=== PATIENT | female | born 1965 | race Asian ===

== ENCOUNTER 2019-10-31 23:40 | Inpatient (IN) | payer BC ==
[~2019-10-31] VITALS: Ht 157.5 cm; Wt 58.7 kg
[2019-11-01 00:10] VITALS: Ht 157.5 cm; Wt 58.7 kg
--- NOTE | 2019-11-01 00:15 | NUR ---
PT BIB AMBULANCE TODAY WITH C/C DIZZINESS BEGINNING AROUND 1999 LAST PM. PT REPORTS DIZZINESS, "LIKE THE ROOM IS SPINNING". PT ALSO C/O GENERALIZED WEAKNESS AND HEAVINESS IN HER CHEST. PT ALSO REPORTS THAT SHE HAS BEEN CONSTIPATED OVER THE LAST SEVERAL DAYS. LAST BM WAS YESTERDAY DURING LUNCH TIME WHEN SHE NOTICED BRIGHT RED BLOOD FROM RECTUM S/P BM. PT IS AWAKE AND ALERT, RESP E/U, DENIES PAIN.
[2019-11-01 00:53] LABS: BASOPHIL % 0.5 % (0-2); PLATELET COUNT 276 x10^3mcL (130-400); RED CELL DISTRIBUTION WIDTH 13.8 % (11.5-14.5)
[2019-11-01 01:18] LABS: CALCIUM 8.6 mg/dL (8.5-10.1); CARBON DIOXIDE 24.9 mmol/L (21-32); CHLORIDE SERUM 102 mmol/L (98-107); CREATININE SERUM 0.6 mg/dL (0.6-1.0); GFR1 > 60 mL/min; GLUCOSE SERUM 129 mg/dL (74-106); POTASSIUM SERUM 3.1 mmol/L (3.5-5.1); SODIUM SERUM 137 mmol/L (136-145)
[2019-11-01 01:19] LABS: ALBUMIN 3.8 g/dL (3.4-5.0); ALKALINE PHOSPHATASE 85 U/L (46-116); ALT/SGPT 31 U/L (14-59); AST/SGOT 22 U/L (15-37); BILIRUBIN TOTAL 0.8 mg/dL (0.20-1.00); TOTAL PROTEIN, SERUM 7.4 g/dL (6.4-8.2)
--- NOTE | 2019-11-01 02:00 | NUR ---
PATIENT TRIED TO WAK TO THE BATHROOM BUT FEEL TOO DIZZY WHEN SHE SIT UP N BED, THE BEDPAN WAS GIVEN
--- NOTE | 2019-11-01 04:02 | NUR ---
PATIENT AMBULATED TO THE BATHROOM.
--- NOTE | 2019-11-01 04:04 | NUR ---
PATIENT MOVED TO ROOM 12. ANTEVERT WAS GIVEN, A SECOND BAG OF SALINE IS INFUSING. PATIENT IS WAIITNG FOR ADMISSION BED.
[2019-11-01 04:15] LABS: T3 TOTAL 0.82 ng/mL
--- NOTE | 2019-11-01 04:39 | NUR ---
RESIDENT AT THE BEDSIDE TALKING TO THE PATIENT.
[2019-11-01 05:19] LABS: UA SPECIFIC GRAVITY <=1.005 (1.005-1.035); microscopic required? YES; urine erythrocyte NEGATIVE (NEGATIVE)
--- NOTE | 2019-11-01 05:19 | NUR ---
PATIENT IS SLEEPING, NO DISTRESS.
[2019-11-01 06:13] LABS: AMPHETAMINE QUAL UR NONE DETECTED (See below)
--- NOTE | 2019-11-01 06:19 | NUR ---
PATIENT WENT FOR CT SCAN OF THE HEAD. AMBULATED TO THE BATHROOM ON RETURN TO THE ROOM.
[2019-11-01] MEDS ORDERED: AMLODIPINE BESYL5 M2 PO (06:23)
--- NOTE | 2019-11-01 07:02 | NUR ---
PATIENT RESTING, NO COMPLAINT.
--- NOTE | 2019-11-01 08:05 | NUR ---
RECEIVED PT FROM ER, ADMISSION ASSESSMENT AND HISTORY IS DONE. DENIES ANY PAIN THIS TIME. STABLE. V/S STABLE. STATED MILD DIZZINESS. TELE MONITOR SHOWS SB WITH HR 59. DENIES CHEST PAIN. SAFTEY PRECAUTIONS ARE IN PLACE. WILL MONITOR.
[2019-11-01 08:35] VITALS: BP 134/78
[2019-11-01 08:35] LABS: BASOPHIL % 0.9 % (0-2); PLATELET COUNT 278 x10^3mcL (130-400); RED CELL DISTRIBUTION WIDTH 14.4 % (11.5-14.5)
[2019-11-01 09:01] LABS: CHLORIDE SERUM 108 mmol/L (98-107); POTASSIUM SERUM 3.7 mmol/L (3.5-5.1); SODIUM SERUM 145 mmol/L (136-145)
[2019-11-01 09:02] LABS: CALCIUM 8.5 mg/dL (8.5-10.1); CARBON DIOXIDE 27.2 mmol/L (21-32); CREATININE SERUM 0.7 mg/dL (0.6-1.0); GFR1 > 60 mL/min; GLUCOSE SERUM 119 mg/dL (74-106)
[2019-11-01 09:28] LABS: CHOLESTEROL/HDL RATIO 3.4; MAGNESIUM 2.3 mg/dL (1.8-2.4); PHOSPHOROUS 4.8 mg/dL (2.5-4.9)
[2019-11-01 09:30] LABS: FREE T4 1.08 ng/dL (0.76-1.46); FREE THYROXINE INDEX 3.1 ug/dL (1.4-4.5); T4(THYROXINE) 8.1 ug/dL (4.7-13.3)
--- NOTE | 2019-11-01 11:00 | NUR ---
PT RESTING IN BED, PT SAID WHEN SHE GET UP AND PUT HER HEAD DOWN SHE FEEL DIZZINESS. OFFERED MECLIZINE PO BUT PT REFUSED, EXPLAINED PURPOSE BUT STILL REFUSED. STABLE. AT BEDSIDE.
--- NOTE | 2019-11-01 12:50 | NUR ---
PT AMBULATED IN THE HALLWAY WITH HER , STATED STILL MILD DIZZINESS, OFFERED MECLIZINE PO AGAIN BUT PT REFUSED. WENT BACK TO BED AND RESTING. STABLE.
[2019-11-01 12:57] VITALS: BP 129/78
--- NOTE | 2019-11-01 16:00 | NUR ---
PT RESTING IN BED COMFORTABLY, STABLE. DENIES ANY PAIN.
[2019-11-01 17:30] VITALS: BP 130/83
--- NOTE | 2019-11-01 19:03 | NUR ---
PT IS SLEEPING THIS TIME. STABLE. DENIES ANY PAIN. 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
--- NOTE | 2019-11-01 19:22 | NUR ---
RECEIVED PT IN BED RESTING QUIETLY. SHE IS ALERT,ORIENTED X4 W/ CLEAR SPEECH. SHE DENIED HAVING DIZZINESS BUT C/O HAVING HEADACHE. OFFERED PAIN MED BUT PT REFUSED. SHE HAS NO SOB ON ROOM AIR. SHE HAS NO C/O ABDL PAIN AT THIS TIME. NO ACTIVE BLEEDING PER RECTUM AT THIS TIME. W/ HL TO [facility] INTACT. CALL LIGHT W/IN REACH.
--- NOTE | 2019-11-01 21:00 | NUR ---
PT REQUESTED TO HAVE HER BLOOD SUGAR CHECKED SAYING THAT BECAUSE SHE DID NOT EAT WELL AT [employer]INNER. RANDOM ACCUCHECK DONE . [id number]=[phone] .
[2019-11-01 22:22] VITALS: BP 128/77
--- NOTE | 2019-11-02 05:04 | NUR ---
PT SLEPT THROUGH THE NIGHT. SHE HAD NO C/O DIZZINESS. NO C/O PAIN AT THIS TIME. NO BLEEDING EPISODE. HL TO [facility] INTACT.
[2019-11-02 05:54] VITALS: BP 120/79
--- NOTE | 2019-11-02 07:25 | NUR ---
RECEIVED PT IN BED. ASSESSED AND DOCUMENTED. DENIES ANY PAIN THIS TIME. NO DIZZINESS THIS TIME. PT SAID EVER SINCE SHE STARTED PROTIEN DIET SHE HAS BEEN CONSTIPATED, EDUCATED PT ABOUT FIBER DIET AND PT ON COLACE PO. STABLE. SAFTEY PRECAUTIONS ARE IN PLACE. WILL MONITOR.
[2019-11-02 08:53] VITALS: BP 128/80
[2019-11-02] MEDS ORDERED: COZ25 PO (09:15)
[2019-11-02] MEDS ORDERED: MECLIZINE HYDRO25 M1 PO (09:15)
[2019-11-02] MEDS ORDERED: ECO81 PO (09:16)
[2019-11-02] MEDS ORDERED: MIRALAX17 GM PO (09:39)
--- NOTE | 2019-11-02 10:55 | NUR ---
LAB CAME TO DO AM BLOOD WORK, PT REFUSED AND SAID SHE IS ALREADY GETTING DISCHARGE TODAY. INFORMED , HE SAID NO NEED TO DO BLOOD WORK NOW AND HE WILL CANCELL IT.
[2019-11-02 11:24] VITALS: BP 128/90
--- NOTE | 2019-11-02 12:00 | NUR ---
PT IS AMBULATING IN THE HALLWAY, NO DIZZINESS, PT IS AWARE ABOUT SHE IS DISCHARGED, WAITING FOR HER TO COME AND PICK HER UP. DENIES ANY PAIN.
[2019-11-02 12:49] VITALS: BP 136/78
--- NOTE | 2019-11-02 14:00 | NUR ---
PT'S CAME TO RESOURCE ECONOMIST PT. DISCHARGE INSTRUCTIONS GIVEN, PRESCRIPTIONS SENT TO PT'S PHARMACY BY DOCTOR. DENIES ANY DIZZINESS. DENIES ANY PAIN. STABLE. IV REMOVED AND DRESSING APPLIED, TELE REMOVED AND RETURNED. OFFERED WHEELCHAIR BUT PT SAID SHE WANT TO WALK. COMMUNITY OUTREACH MANAGER WALK WITH PT ACCOMPANIED WITH HER TO LOBBY. PT DC HOME.
== END 2019-11-02 14:11 | disposition home or self-care (01) | DRG 74 ==
LOC: ED 23:40 → DU 11-01 03:28
PROVIDERS: Emergency Medicine; ADMIT Internal Medicine
DX: G90.8 Other disorders of autonomic nervous system (principal); I16.9 Hypertensive crisis, unspecified; I10 Essential (primary) hypertension; E87.6 Hypokalemia; R00.1 Bradycardia, unspecified; Z90.721 Acquired absence of ovaries, unilateral; Z79.899 Other long term (current) drug therapy
CPT/HCPCS: 82962; 83880; 84439; G0378; J2405; J7030; J8597; Q0092